=== PATIENT | male | born 1995 | race Hispanic/Latino ===

== ENCOUNTER 2021-07-17 21:24 | Emergency (ER) | payer OTHER ==
[~2021-07-17] VITALS: Ht 167.6 cm; Wt 90.2 kg
[2021-07-17 23:41] LABS: RSV AMPLIFICATION NEGATIVE (NEGATIVE)
[2021-07-18] MEDS ORDERED: ALBUTEROL 90 MCG/ACT 8GM HFA INHALER INH ONE
[2021-07-18] MEDS ORDERED: predniSONE 20 MG TAB PO ONE
[2021-07-18] MEDS ORDERED: BENZONATATE 100MG CAPSULE PO ONE
[2021-07-18 00:01] VITALS: BP 139/82
[2021-07-18] MEDS ORDERED: BENZ200C70 PO (00:08)
[2021-07-18] MEDS ORDERED: PRED20TA PO (00:08)
[2021-07-18] MEDS ORDERED: ACETAMINOPHEN TAB 650MG DOSE (2X325MG) PO ONE (00:20)
== END 2021-07-18 00:26 | disposition home or self-care (01) ==
LOC: M ED 21:24
DX: J20.9 Acute bronchitis, unspecified (principal); Z20.822 Contact with and (suspected) exposure to COVID-19
CPT/HCPCS: 87631; 94640; 99284; J7512

== ENCOUNTER 2021-09-27 13:09 | Emergency (ER) | payer OTHER ==
[~2021-09-27] VITALS: Ht 167.6 cm; Wt 85.9 kg
[~2021-09-27 13:09] MED LIST: BENZ200C70 PO; PRED20TA PO
[2021-09-27] MEDS ORDERED: VENTAER INH (13:38)
[2021-09-27] MEDS ORDERED: ADV100INH INH (13:38)
[2021-09-27] MEDS ORDERED: NEOSPORIN OINT 0.9 GM PKT TOP ONE (15:35)
[2021-09-27] MEDS ORDERED: CIPR-249 PO (15:40)
[2021-09-27 15:52] VITALS: BP 129/62
== END 2021-09-27 15:53 | disposition home or self-care (01) ==
LOC: M ED 13:09
DX: S91.332A Puncture wound without foreign body, left foot, initial encounter (principal); W45.0XXA Nail entering through skin, initial encounter; Y92.9 Unspecified place or not applicable; Y93.9 Activity, unspecified; Y99.9 Unspecified external cause status; J45.909 Unspecified asthma, uncomplicated